=== PATIENT | male | born 1975 | race African-American/Black ===

== ENCOUNTER 2017-09-30 12:54 | Emergency (ER) | payer OTHER ==
[~2017-09-30] VITALS: Ht 185.4 cm; Wt 82.0 kg
[2017-09-30 19:25] VITALS: BP 132/74
== END 2017-09-30 19:25 | disposition home or self-care (01) ==
LOC: ER 13:15 → EDBD 13:15 → ER 19:25
DX: F10.229 Alcohol dependence with intoxication, unspecified (principal); Y90.9 Presence of alcohol in blood, level not specified
CPT/HCPCS: 99283

== ENCOUNTER 2017-11-08 04:03 | Emergency (ER) | payer MEDICAID, OTHER ==
[~2017-11-08] VITALS: Ht 185.4 cm; Wt 100.0 kg
[2017-11-08 08:18] LABS: CHLORIDE 106 mEq/L (98-107)
[2017-11-08 08:20] LABS: BASOPHILS % 0.6 % (0.0-2.0); EOSINOPHILS % 4.5 % (0.0-5.0); HEMOGLOBIN. 13.5 g/dL (14.0-18.0); LYMPHOCYTES % 49.6 % (20.0-50.0); MEAN CORPUSCULAR HEMOGLOBIN 30.1 pg (28.0-32.0); MEAN CORPUSCULAR VOLUME 89.3 fL (80.0-94.0); MEAN PLATELET VOLUME 9.5 fl (7.4-10.4); NEUTROPHILS % 31.3 % (40.0-76.0); PLATELET 278 x1000/uL (130-400); RED BLOOD CELL COUNT 4.48 mill/uL (4.7-6.1); RED CELL DISTRIBUTION WIDTH 14.6 % (11.6-14.6)
[2017-11-08 10:11] VITALS: BP 114/84
[2017-11-08 11:06] LABS: CLARITY URINE CLEAR (CLEAR); COLOR URINE YELLOW (YELLOW); KETONES URINE 1+ (NEGATIVE); LEUKOCYTE ESTERASE URINE NEGATIVE (NEGATIVE); NITRITE URINE NEGATIVE (NEGATIVE); OCCULT BLOOD URINE NEGATIVE (NEGATIVE); PROTEIN URINE NEGATIVE (NEGATIVE); UROBILINOGEN URINE 0.2 E.U./dL (0.2-1.0)
[2017-11-08 12:03] LABS: *AMPHETAMINES SCREEN URINE NEGATIVE (NEGATIVE); *BARBITURATES SCREEN URINE NEGATIVE (NEGATIVE); *BENZODIAZEPINES SCREEN URINE NEGATIVE (NEGATIVE); *COCAINE SCREEN URINE PRESUMTIVE POSITIVE (NEGATIVE); METHADONE URINE SCREEN NEGATIVE (NEGATIVE); OPIATES URINE SCREEN NEGATIVE (NEGATIVE)
[2017-11-08 12:04] LABS: CANNABINOID URINE SCREEN NEGATIVE (NEGATIVE); PHENCYCLIDINE URINE SCREEN NEGATIVE (NEGATIVE)
== END 2017-11-08 12:56 | disposition home or self-care (01) ==
LOC: ER 04:12
DX: T40.5X1A Poisoning by cocaine, accidental (unintentional), initial encounter (principal); F14.221 Cocaine dependence with intoxication delirium; I10 Essential (primary) hypertension; G40.909 Epilepsy, unspecified, not intractable, without status epilepticus; F17.200 Nicotine dependence, unspecified, uncomplicated; Y92.488 Other paved roadways as the place of occurrence of the external cause
CPT/HCPCS: 36415; 80053; 80305; 80307; 80329; 81003; 85025; 99284; G0482

== ENCOUNTER 2024-02-01 13:41 | Emergency (ER) | payer MEDICAID ==
[~2024-02-01] VITALS: Ht 177.8 cm; Wt 73.0 kg
[2024-02-01 13:45] VITALS: O2SAT 96
[2024-02-01 14:58] LABS: BASOPHILS % 0.7 % (0.0-2.0); EOSINOPHILS % 3.7 % (0.0-5.0); HEMATOCRIT. 35.8 % (42.0-52.0); HEMOGLOBIN. 11.9 g/dL (14.0-18.0); LYMPHOCYTES % 35.7 % (20.0-50.0); MEAN CORPUSCULAR HEMOGLOBIN 30.1 pg (28.0-32.0); MEAN CORPUSCULAR HGB CONC 33.2 g/dL (31.0-37.0); MEAN CORPUSCULAR VOLUME 90.7 fL (80.0-94.0); MEAN PLATELET VOLUME 8.9 fl (7.4-10.4); NEUTROPHILS % 45.9 % (40.0-76.0); PLATELET 293 x1000/uL (130-400); RED BLOOD CELL COUNT 3.94 mill/uL (4.7-6.1); RED CELL DISTRIBUTION WIDTH 15.1 % (11.6-14.6); WHITE BLOOD COUNT 2.6 x1000/uL (4.5-11.0)
[2024-02-01 15:03] LABS: CHLORIDE 109 mEq/L (98-107); POTASSIUM 3.9 mEq/L (3.5-5.1); SODIUM 140 mEq/L (136-145)
[2024-02-01 15:04] LABS: CALCIUM 8.8 mg/dL (8.7-10.4); CARBON DIOXIDE 26 mEq/L (21-32)
[2024-02-01 15:09] LABS: CREATININE 1.3 mg/dL (0.6-1.3); GLUCOSE 101 mg/dL (70-105); UREA NITROGEN BLOOD 21 mg/dL (9-23)
[2024-02-01 17:28] VITALS: BP 104/71; PULSE 60; RESP 16; TEMP 36.72516; O2SAT 97
== END 2024-02-01 17:35 | disposition home or self-care (01) ==
LOC: ER 13:46
DX: F41.9 Anxiety disorder, unspecified (principal); I10 Essential (primary) hypertension; F14.10 Cocaine abuse, uncomplicated; R41.82 Altered mental status, unspecified
CPT/HCPCS: 36415; 80048; 85025; 93005; 99284